=== PATIENT | female | born 1985 | race Caucasian/White ===

== ENCOUNTER 2021-11-25 12:03 | Inpatient (IN) | payer BC ==
[2021-11-25] MEDS ORDERED: Ondansetron PF 4 MG/2 ML Vial ONE (12:38)
[2021-11-25 12:55] LABS: #Basophils 0.1 10x3/uL (0.0-0.2); #Monocytes 0.2 10x3/uL (0.0-1.1); #Neutrophils 13.8 10x3/uL (1.5-8.4); %Basophils 0.5 % (0.0-2.0); %Eosinophils 0.1 % (0.0-6.0); %Monocytes 1.6 % (0.0-10.0); %Neutrophils 91.3 % (40.0-75.0); Hemoglobin 15.5 g/dL (12.0-15.5); Mean Corpuscular HGB CONC 34.3 g/dL (32.0-36.0); Mean Corpuscular Volume 99.1 fl (81.6-98.3); Mean Platelet Volume 10.7 fl (7.4-10.4); Platelet Count 245 10x3/uL (150-450); RBC Distribution Width 12.1 % (11.5-14.5); Red Blood Cell (RBC) Count 4.56 10x6/uL (3.90-5.03); White Blood Cell (WBC) Count 15.1 10x3/uL (3.5-10.5)
[2021-11-25 12:58] LABS: Actual Bicarbonate (HCO3v) 15 mEq/L (22-28); Base Excess -12.8 mEq/L (-2.0 to +3.0); Calcium, Ionized (venous) 1.26 mmol/L (1.16-1.32); Chloride (VBG) 104 mmol/L (98-106); Hemoglobin (Hb) 15.7 g/dL (11.7-15.5); Potassium (VBG) 4.88 mmol/L (3.70-5.30); Puncture Site Other Site; RapidComm Collect By CBL; Sodium 139.1 mmol/L (133-146)
[2021-11-25 13:01] LABS: ALT (SGPT) 26 U/L (8-55); AST (SGOT) 27 U/L (5-34); Alkaline Phosphatase 87 U/L (40-110); Anion Gap 25 mmol/L (10-20); BUN (Urea Nitrogen) 19 mg/dL (7.0-18.7); Bilirubin, Total 2.1 mg/dL (0.2-1.2); CK (CPK) 50 U/L (29-168); Calc. Creatinine Clearance 0 mL/min (70-130); Calcium 10.6 mg/dL (7.8-10.44); Carbon Dioxide 15 mmol/L (22-29); Chloride 99 mmol/L (98-107); Globulin 3.6 g/dL (2.4-3.5); Glucose 394 mg/dL (70-105); Potassium 5.4 mmol/L (3.5-5.1); Protein, Total 8.6 g/dL (6.0-8.3); Sodium 134 mmol/L (136-145)
[2021-11-25] MEDS ORDERED: INSULIN REGULAR IN 0.9 % NACL 100 UNIT/100 ML BAG ONE (13:30)
[2021-11-25] MEDS ORDERED: Sodium Chloride 0.9% 1,000 ML IV PRN ×4 (13:38)
[2021-11-25] MEDS ORDERED: NS 0.9% w/ 20 MEQ KCL 1,000 ML IV PRN ×2 (13:38)
[2021-11-25] MEDS ORDERED: Electrolyte Replacement Protocol 1 EACH IVPB PRN (13:38)
[2021-11-25] MEDS ORDERED: Ondansetron PF 4 MG/2 ML Vial IVP PRN (13:39)
[2021-11-25] MEDS ORDERED: Acetaminophen 325 MG TAB PO PRN (14:03)
[2021-11-25 14:14] LABS: Anion Gap 23 mmol/L (10-20); BUN (Urea Nitrogen) 19 mg/dL (7.0-18.7); Calc. Creatinine Clearance 0 mL/min (70-130); Carbon Dioxide 14 mmol/L (22-29); Chloride 103 mmol/L (98-107); Glucose 388 mg/dL (70-105); Potassium 5.4 mmol/L (3.5-5.1); Sodium 135 mmol/L (136-145)
[2021-11-25] MEDS ORDERED: INSULIN REGULAR IN 0.9 % NACL 100 UNIT in Premix Bag 1 BAG IVPB SCH (15:15)
[2021-11-25 15:20] VITALS: BMI 20.8
[2021-11-25 15:49] LABS: Lactic Acid 2.2 mmol/L (0.5-2.2)
[2021-11-25] MEDS: cefTRIAXone\\ROCEPHIN 2 GM in Sodium Chloride 0.9% 100 ML IVPB SCH (16:43)
[2021-11-25 18:46] LABS: Anion Gap 17 mmol/L (10-20); BUN (Urea Nitrogen) 16 mg/dL (7.0-18.7); Calc. Creatinine Clearance 92 mL/min (70-130); Calcium 8.7 mg/dL (7.8-10.44); Chloride 116 mmol/L (98-107); Glucose 74 mg/dL (70-105); Sodium 137 mmol/L (136-145)
[2021-11-25 18:53] LABS: Carbon Dioxide 9 mmol/L (22-29)
[2021-11-25] MEDS: Dextrose 5 %-0.45 % NaCl 1,000 ML IV PRN ×2 (19:48→23:57)
[2021-11-25] MEDS: Famotidine 20 MG TAB PO SCH (19:49)
[2021-11-25 23:27] LABS: Anion Gap 11 mmol/L (10-20); BUN (Urea Nitrogen) 12 mg/dL (7.0-18.7); Calc. Creatinine Clearance 91 mL/min (70-130); Calcium 7.9 mg/dL (7.8-10.44); Carbon Dioxide 17 mmol/L (22-29); Chloride 110 mmol/L (98-107); Glucose 228 mg/dL (70-105); Potassium 4.1 mmol/L (3.5-5.1); Sodium 134 mmol/L (136-145)
[2021-11-26 03:47] LABS: Anion Gap 13 mmol/L (10-20); BUN (Urea Nitrogen) 9 mg/dL (7.0-18.7); Calc. Creatinine Clearance 100 mL/min (70-130); Calcium 7.9 mg/dL (7.8-10.44); Carbon Dioxide 16 mmol/L (22-29); Chloride 111 mmol/L (98-107); Glucose 112 mg/dL (70-105); Potassium 3.7 mmol/L (3.5-5.1); Sodium 136 mmol/L (136-145)
[2021-11-26 03:50] LABS: Phosphorus 2.6 mg/dL (2.3-4.7)
[2021-11-26 04:04] LABS: Magnesium 1.7 mg/dL (1.6-2.6)
[2021-11-26] MEDS: D5 1/2 NS w/20 mEq KCL 1,000 ML IV PRN ×2 (04:24→08:58)
[2021-11-26] MEDS ORDERED: Levothyroxine Sodium 25 MCG TAB PO SCH (06:00)
[2021-11-26] MEDS ORDERED: Levothyroxine Sodium 112 MCG TAB PO SCH (06:00)
[2021-11-26] MEDS ORDERED: Magnesium 2 GM/50 ML(in water) 2 GM in Premix Bag 1 BAG IVPB SCH (06:15)
[2021-11-26 08:34] LABS: Anion Gap 10 mmol/L (10-20); BUN (Urea Nitrogen) 7 mg/dL (7.0-18.7); Calc. Creatinine Clearance 99 mL/min (70-130); Calcium 7.9 mg/dL (7.8-10.44); Carbon Dioxide 18 mmol/L (22-29); Chloride 111 mmol/L (98-107); Glucose 210 mg/dL (70-105); Potassium 4.4 mmol/L (3.5-5.1); Sodium 135 mmol/L (136-145)
[2021-11-26] MEDS: Famotidine 20 MG TAB PO SCH (08:52)
[2021-11-26] MEDS ORDERED: Magnesium Oxide 400 MG TAB PO SCH (09:00)
[2021-11-26] MEDS ORDERED: Potassium Chloride 20 MEQ TAB PO SCH (09:00)
[2021-11-26] MEDS ORDERED: Lidocaine 5% Patch TD SCH (09:00)
[2021-11-26] MEDS ORDERED: HumaLOG 300 UNITS/3 ML VIAL SC SCH (10:00)
[2021-11-26] MEDS ORDERED: Dextrose 5% in Water 1,000 ML IV PRN (13:43)
[2021-11-26] MEDS ORDERED: HumaLOG 300 UNITS/3 ML VIAL SC PRN ×2 (13:43)
[2021-11-26] MEDS ORDERED: Dextrose 50% Abboject 50 ML SYRINGE SLOW IVP PRN (13:43)
[2021-11-26 13:50] LABS: Anion Gap 9 mmol/L (10-20); BUN (Urea Nitrogen) 4 mg/dL (7.0-18.7); Calc. Creatinine Clearance 97 mL/min (70-130); Calcium 8.1 mg/dL (7.8-10.44); Carbon Dioxide 19 mmol/L (22-29); Chloride 115 mmol/L (98-107); Glucose 145 mg/dL (70-105); Potassium 4.3 mmol/L (3.5-5.1); Sodium 139 mmol/L (136-145)
[2021-11-26] MEDS: cefTRIAXone\\ROCEPHIN 2 GM in Sodium Chloride 0.9% 100 ML IVPB SCH (15:28)
[2021-11-26] MEDS ORDERED: Transdermal Patch Removal TOP SCH (21:00)
== END 2021-11-26 16:30 | disposition home or self-care (01) | DRG 919 ==
LOC: CSHERS 12:03 → CSHIMCU 14:28
PROVIDERS: ADMIT Internal Medicine; ATTEND Internal Medicine
DX: T85.898A Other specified complication of other internal prosthetic devices, implants and grafts, initial encounter (principal); E10.10 Type 1 diabetes mellitus with ketoacidosis without coma; N39.0 Urinary tract infection, site not specified; E03.9 Hypothyroidism, unspecified; F90.9 Attention-deficit hyperactivity disorder, unspecified type; Y83.8 Other surgical procedures as the cause of abnormal reaction of the patient, or of later complication, without mention of misadventure at the time of the procedure; E87.5 Hyperkalemia; Z79.899 Other long term (current) drug therapy; Z79.4 Long term (current) use of insulin
CPT/HCPCS: 36415; 36416; 71045; 80048; 80053; 82010; 82550; 82805; 83605; 83735; 84100; 85025; 93005; 96365; 96375; J0696; J1815; J2405; J3475; J3480; J3490; J7042